=== PATIENT | female | born 2005 | race Hispanic/Latino ===

== ENCOUNTER 2023-04-07 09:08 | Day surgery (SDC) | payer BC ==
[2023-04-06 11:59] VITALS: BP 134/78; PULSE 98; RESP 20
[2023-04-06 12:08] LABS: BASOPHILS # (AUTO) 0.02 K/uL (0.00-0.20); BASOPHILS % (AUTO) 0.2 % (0.0-5.0); EOSINOPHILS # (AUTO) 0.06 K/uL (0.00-0.70); EOSINOPHILS % (AUTO) 0.7 % (0.0-8.0); HEMATOCRIT 38.1 % (36-48); IMMATURE GRANULOCYTE ABSOLUTE 0.03 K/uL (0-1); LYMPHOCYTES # (AUTO) 2.3 K/uL (1.0-4.8); LYMPHOCYTES % (AUTO) 26.3 % (21.0-51.0); MEAN CORPUSCULAR HEMOGLOBIN 30.2 pg (27.0-33.0); MEAN CORPUSCULAR HGB CONC 34.1 g/dL (32.0-36.0); MEAN CORPUSCULAR VOLUME 88.6 fL (80-100); MONOCYTES # (AUTO) 0.4 K/uL (0.1-1.0); MONOCYTES % (AUTO) 4.4 % (3.0-13.0); NEUTROPHILS # (AUTO) 6.1 K/uL (1.8-7.7); NEUTROPHILS % (AUTO) 68.1 % (40.0-77.0); PLATELET COUNT (AUTO) 359 K/uL (130-400); RED CELL DISTRIBUTION WIDTH 12.3 % (11.0-15.5); WHITE BLOOD COUNT (AUTO) 8.9 K/uL (4.8-10.8)
[2023-04-06 12:13] LABS: ALBUMIN 4.1 g/dL (3.5-5.0); BILIRUBIN,TOTAL 0.3 mg/dL (0.2-1.0); CREATININE 0.6 mg/dL (0.5-1.5); POTASSIUM 3.9 mmol/L (3.5-5.1); TOTAL PROTEIN, SERUM 8.4 g/dL (6.0-8.3)
[~2023-04-07] VITALS: Ht 160 cm; Wt 60.7 kg
[2023-04-07] VITALS (18 sets, daily range): BP systolic 92–129; BP diastolic 45–83; PULSE 79–106; RESP 12–19
[2023-04-07] MEDS ORDERED: CEFAZOLIN SODIUM 2 GM VIAL ONE (09:22)
[2023-04-07] MEDS ORDERED: LACTATED RINGERS 1000ML 1,000 ML IV ONE (09:22)
[2023-04-07] MEDS ORDERED: BUPIVACAINE/PF 0.5% 30ML VIAL ONE (11:23)
[2023-04-07] MEDS ORDERED: DEXAMETHASONE SOD PHOSPHATE 10MG/ML 1ML VIAL ONE (12:03)
[2023-04-07] MEDS ORDERED: MIDAZOLAM HCL 1 MG/ML 2ML VIAL ONE (12:03)
[2023-04-07] MEDS ORDERED: LIDOCAINE PF 100MG/5ML (2%) SYRINGE 5ML ONE (12:03)
[2023-04-07] MEDS ORDERED: FENTANYL CITRATE PF 50 MCG/1 ML 2ML VIAL ONE (12:04)
[2023-04-07] MEDS ORDERED: PROPOFOL 10 MG/ML 20ML VIAL IV ONE (12:04)
[2023-04-07] MEDS ORDERED: ONDANSETRON 4MG INJ ONE (12:04)
[2023-04-07] MEDS ORDERED: KETOROLAC 30MG VIAL (30MG/ML) ONE (12:14)
[2023-04-07] MEDS ORDERED: CEFAZOLIN SODIUM 2 GM VIAL IJ ONE (12:20)
[2023-04-07] MEDS ORDERED: BUPIVACAINE/PF 0.5% 30ML VIAL INJ ONE (12:21)
[2023-04-07] MEDS ORDERED: DiphenhydrAMINE HCL 50 MG/ML VIAL ONE (12:23)
[2023-04-07] MEDS ORDERED: MEPERIDINE-PF 25 MG/ML SYG ONE (12:28)
== END 2023-04-07 14:40 | disposition home or self-care (01) ==
LOC: DAH 09:08
PROVIDERS: ATTEND Orthopaedic Surgery
DX: M25.562 Pain in left knee (principal); Z20.822 Contact with and (suspected) exposure to COVID-19; M79.4 Hypertrophy of (infrapatellar) fat pad; M79.89 Other specified soft tissue disorders; Z98.890 Other specified postprocedural states
CPT/HCPCS: 80053; 84703; 85025; 36415; 29870; 11106; 88307; A6260; A4663; A4606; J7120; J1200; J3010; J1100; J2001; J2250; J2704; J2405; J1885; J3490 ×2; J2175; J0690 ×2; A6223; A4649 ×2; A5120; A4215; A4223; A4222; A4221; A6450